=== PATIENT | female | born 1955 | race Caucasian/White ===

== ENCOUNTER 2016-11-28 15:28 | Outpatient (CLI) | payer OTHER ==
--- NOTE | 2016-11-28 15:53 | DIAGNOSTIC IMAGING REPORT ---
PROCEDURE: XR CHEST 2 VIEW INDICATION: COUGH TECHNIQUE: PA and lateral views. COMPARISON: None. FINDINGS: New left lower lobe infiltrate. Heart and mediastinum are normal. Thorax is normal. IMPRESSION: 1. New left lower lobe infiltrate
== END 2016-11-28 23:00 ==
LOC: XR SRH 15:28
DX: R91.8 Other nonspecific abnormal finding of lung field (principal)

== ENCOUNTER 2016-12-11 16:34 | Outpatient (CLI) | payer OTHER ==
--- NOTE | 2016-12-11 17:23 | DIAGNOSTIC IMAGING REPORT ---
PROCEDURE: XR CHEST 2 VIEW INDICATION: Follow-up left lower lobe pneumonia. TECHNIQUE: PA and lateral views. COMPARISON: Compared to chest x-ray on 11/28/2016 FINDINGS: Lungs are clear. Heart and mediastinum are normal. Thorax is normal. IMPRESSION: 1. Negative chest with resolution of left lower lobe pneumonia.
== END 2016-12-11 23:00 ==
LOC: XR SRH 16:34
DX: J18.9 Pneumonia, unspecified organism (principal)

== ENCOUNTER 2017-02-20 10:41 | Outpatient (CLI) | payer OTHER ==
--- NOTE | 2017-02-20 11:34 | DIAGNOSTIC IMAGING REPORT ---
PROCEDURE: XR HIP 2VW W W/O AP PELVIS-RT INDICATION: R HIP JOINT PAIN TECHNIQUE: AP view of the pelvis and hips with lateral view of the right hip. COMPARISON: None. FINDINGS: Right HIP: Osseous structures and joint spaces are normal. PELVIS: Osseous pelvis is normal. IMPRESSION: 1. Negative pelvis and right hip.
== END 2017-02-20 23:00 ==
LOC: XR SRH 10:41
DX: M25.551 Pain in right hip (principal)